=== PATIENT | female | born 1950 | race African-American/Black ===

== ENCOUNTER 2019-02-15 21:35 | Emergency (ER) | payer MEDICARE ==
[~2019-02-15] VITALS: Ht 172.7 cm; Wt 72.1 kg
[2019-02-15 21:33] VITALS: BP 159/98
[~2019-02-15 21:35] MED LIST: AMLODIPINE BES2.5 MG ORAL; ASPIR 8181 MG ORAL; LISINOPRIL5 MG ORAL
[2019-02-15] MEDS ORDERED: HALOPERIDOL0.5 MG ORAL (21:44)
[2019-02-15 22:25] LABS: APPEARANCE,URINE CLOUDY; BILIRUBIN, URINE NEGATIVE (NEGATIVE); COLOR,URINE PALE YELLOW; GLUCOSE, URINE (UA) NEGATIVE (NEGATIVE); KETONES,URINE NEGATIVE (NEGATIVE); LEUKOCYTE ESTERASE ,URINE 3+ (NEGATIVE); NITRITE,URINE NEGATIVE (NEGATIVE); PH,URINE 5 (4.5-8.0); PROTEIN,URINE 2+ (NEGATIVE); UROBILINOGEN,URINE NORMAL MG/DL (0.0-1.0)
[2019-02-15 22:25] LABS: BASOPHILS % (AUTO) 1.6 % (0.0-2.0); EOSINOPHILS % (AUTO) 3.1 % (0.0-3.0); HEMATOCRIT 35.4 % (37.0-47.0); HEMOGLOBIN 12.7 G/DL (12.0-16.0); LYMPHOCYTES % (AUTO) 28.7 % (20.0-45.0); MEAN CORPUSCULAR VOLUME 88 FL (80-99); MONOCYTES % (AUTO) 11.5 % (1.0-10.0); NEUTROPHILS % (AUTO) 55.2 % (45.0-75.0); PLATELET COUNT 168 K/UL (150-450); RED BLOOD COUNT 4.03 M/UL (4.20-5.40); RED CELL DISTRIBUTION WIDTH 11.3 % (11.6-14.8)
[2019-02-15 22:27] LABS: ANION GAP 10 mmol/L (5-15); BLOOD UREA NITROGEN 39 mg/dL (7-18); CALCIUM 9.1 MG/DL (8.5-10.1); CARBON DIOXIDE 25 MMOL/L (21-32); CHLORIDE 105 MMOL/L (98-107); CREATININE 2.1 MG/DL (0.55-1.30); POTASSIUM 3.8 MMOL/L (3.5-5.1); SODIUM 140 MMOL/L (136-145)
[2019-02-15] MEDS ORDERED: Azithromycin 250mg tab ORAL ONE (22:30)
--- NOTE | 2019-02-15 22:43 | Emergency Room Report ---
History of Present Illness General Chief Complaint: Nosebleed Source: Patient Present Illness HPI This is a 68-year-old female with a history of high blood pressure. She comes in with 2 complaints. Her first complaint is nosebleed. Acute onset for about an hour or 2 ago. She said his blood just pour out her nose. Mostly in the left side. No trauma. No fever chills but no nausea no vomiting. No recent cold. Better with pressure. Second complaint is vaginal discharge. She noticed a thick greenish discharge for the last 2 days. No dysuria. No frequency. She is sexually active with one partner. No protection. No history of STD. Allergies: Coded Allergies: No Known Allergies (Unverified , 02/15/19) Patient History Past Medical History: see triage record, old chart reviewed, HTN Past Surgical History: none Pertinent Family History: none Social History: Denies: smoking Last Menstrual Period: NA Now: No Immunizations: other Reviewed Nursing Documentation: PMH: Agreed; PSxH: Agreed Nursing Documentation-PMH Past Medical History: No History, Except For Hx Cardiac Problems: No Hx Hypertension: Yes Hx Pacemaker: No Hx Asthma: No Hx COPD: No Hx Diabetes: No Hx Cancer: No Hx Gastrointestinal Problems: No Hx Dialysis: No History Of Psychiatric Problem: No Hx Neurological Problems: No Hx Cerebrovascular Accident: No Hx Seizures: No Review of Systems Eye: Denies: eye pain, blurred vision ENT: Denies: ear pain, nose congestion, throat swelling Respiratory: Denies: cough, shortness of breath Cardiovascular: Denies: chest pain, palpitations Gastrointestinal: Denies: abdominal pain, diarrhea, nausea, vomiting Genitourinary: Reports: vag bleed/dc Musculoskeletal: Denies: back pain, joint pain Skin: Denies: rash Neurological: Denies: headache, numbness Endocrine: Denies: increased thirst, increased urine Hematologic/Lymphatic: Denies: easy bruising All Other Systems: negative except mentioned in HPI Physical Exam Vital Signs Date Time Temp Pulse Resp B/P (MAP) Pulse Ox O2 Delivery O2 Flow Rate FiO2 02/15/19 21:21 98.1 97 02/15/19 21:21 18 180/117 (138) 94 Room Air Vitals with high blood pressure Sp02 EP Interpretation: reviewed, normal General Appearance: well appearing, no apparent distress, alert Head: normocephalic, atraumatic Eyes: bilateral eye PERRL, bilateral eye EOMI ENT: hearing grossly normal, normal pharynx, other - Large clots in the left nose. Active oozing. Bleeding appear to be superiorly. Neck: full range of motion, supple, no meningismus Respiratory: chest non-tender, lungs clear, normal breath sounds Cardiovascular #1: regular rate, rhythm, no murmur Gastrointestinal: normal bowel sounds, non tender, no mass, no organomegaly, no bruit, non-distended Genitourinary: other - Pelvic exam done with female nurse as rn review. External exam normal. Internal exam showed copious amount of yellowish/ greenish discharge. Musculoskeletal: back normal, normal range of motion, gait/station normal Psychiatric: mood/affect normal Procedures Additional Procedure Procedure Narrative Procedure: Epistaxis control Indication: Epistaxis Description: Initially I placed a 5.5 cm Rhino Rocket. Stop the bleeding but 20 minutes later start bleeding again. I remove the packing and there was some clots on top of the Rhino Rocket. She also blew out a large clot. I suspect that the Rhino Rocket is not tamponading the bleeding site which is superior to it. Because of this I placed a gauze soaked in tranexamic acid. I was able to pack the nares tightly and superiorly also. This stopped the bleeding. Patient tolerated suture without any problem. No complication. Medical Decision Making Diagnostic Impression: Primary Impression: Epistaxis Additional Impressions: Hypertension Qualified Codes: I10 - Essential (primary) hypertension Acute cervicitis CKD (chronic kidney disease) Qualified Codes: N18.3 - Chronic kidney disease, stage 3 (moderate) ER Course Patient presents with epistaxis. Most likely secondary to high blood pressure. Blood pressure controlled. Leading controlled. She does have a cervicitis. This is most likely gonorrhea. She does have few Trichomonas in the urine. She received Rocephin, azithromycin and Flagyl. Recommend outpatient testing for HIV, hepatitis, syphilis and other STDs. Told her to keep her appointment with your doctor on Tuesday. Return if worse. Last Vital Signs Date Time Temp Pulse Resp B/P (MAP) Pulse Ox O2 Delivery O2 Flow Rate FiO2 02/15/19 21:33 98.1 89 18 159/98 94 Room Air Status: improved Disposition: HOME, SELF-CARE Condition: Stable Referrals: [facility] (PCP) Patient Instructions: Nosebleed, [id number] Additional Instructions: Increase your amlodipine to 10 mg a day. Keep your appointment with your doctor on Tuesday. Have your partner treated also. Recommend outpatient testing for HIV, hepatitis, syphilis and other STDs. Recommend Pap smear. Return if symptoms worsen. Tristen Florentino MD Feb 15, 2019 22:43
[2019-02-15 23:09] VITALS: BP 160/102
[2019-02-15] MEDS ORDERED: metroNIDAZOLE 500mg tab ORAL ONE (23:15)
[2019-02-15 23:19] VITALS: BP 152/99
[2019-02-15 23:39] VITALS: BP 154/87
[2019-02-16] MEDS ORDERED: AMLODIPINE BESY10 MG ORAL (07:44)
[2019-02-16] MEDS ORDERED: LISINOPRIL20 MG ORAL (07:44)
[2019-02-16] MEDS ORDERED: METOPROLOL TART25 MG ORAL (07:44)
[2019-02-16] MEDS ORDERED: ALLOPURINOL100 M1 ORAL (07:44)
[2019-02-16] MEDS ORDERED: ADVIL100 MG ORAL (07:44)
[2019-02-16] MEDS ORDERED: AMLODIPINE BESYL5 MG ORAL (07:45)
== END 2019-02-15 23:39 | disposition home or self-care (01) ==
LOC: EDBD 21:35 → EMR 22:01
DX: R04.0 Epistaxis (principal); I10 Essential (primary) hypertension; N72 Inflammatory disease of cervix uteri; N18.3 Chronic kidney disease, stage 3 (moderate)
CPT/HCPCS: 30901; 36415; 80048; 81001; 85025; 85610; 87081; 87086; 87205; 87210; 96374; 96375; 99284; J0360; J0696; 71045; 80053; 84484; 85730; 86850; 86900; 86901; 93005; 99285

== ENCOUNTER 2019-02-16 06:37 | Emergency (ER) | payer MEDICARE ==
[~2019-02-16] VITALS: Ht 172.7 cm; Wt 72.1 kg
[~2019-02-16 06:37] MED LIST changes: +HALOPERIDOL0.5 MG ORAL
[2019-02-16 06:45] VITALS: BP 155/95
--- NOTE | 2019-02-16 06:45 | NUR ---
ED Nurse Note: Pt aaox4, vss, no acute distress. Pt is cooperative and well groomed. PT BROUGHT IN BY [facility] 894 FOR NOSE BLEED X 30 MIN AGO. PT WAS HER EARLIER TODAY FOR THE SAME REASON.
--- NOTE | 2019-02-16 06:55 | NUR ---
ED Nurse Note: MD inserted Rapid Rhino Nasal Dressing in her left nostril. Pt tolerated tx.
--- NOTE | 2019-02-16 07:30 | NUR ---
Note melone in EDM - 02/16/19 at 0822 by CECILIA ED Nurse Note: Patient resting in bed in high barajas position. Patient awake, alert, oriented x 4. Regular, unlabored breathing noted. Nasal packing to left nare noted. Small amount < 3ml of nasal dripping noted with blood vir right nare. Patient c/o postnasal drip. Reports no N/V or diaphoresis. Report no dizziness or drowsiness. Provided comfort measures.
--- NOTE | 2019-02-16 07:30 | NUR ---
ED Nurse Note: Patient resting in bed in high barajas position. Patient awake, alert, oriented x 4. Regular, unlabored breathing noted. Nasal packing to left nare noted. Small amount < 3ml of nasal dripping noted with blood via right nare. Patient c/o postnasal drip. Reports no N/V or diaphoresis. Report no dizziness or drowsiness. Provided comfort measures.
--- NOTE | 2019-02-16 07:35 | NUR ---
ED Nurse Note: Patient started c/o aching pain to left chest, non-radiating, 06/28. Reports no N/V or dyspnea. ERMD notified and here at bedside. Family members at beside. 12 lead EKG obtained.
[2019-02-16 07:40] VITALS: BP 146/99
[2019-02-16] MEDS ORDERED: ADVIL100 MG ORAL (07:44)
[2019-02-16] MEDS ORDERED: METOPROLOL TART25 MG ORAL (07:44)
[2019-02-16] MEDS ORDERED: AMLODIPINE BESY10 MG ORAL (07:44)
[2019-02-16] MEDS ORDERED: ALLOPURINOL100 M1 ORAL (07:44)
[2019-02-16] MEDS ORDERED: LISINOPRIL20 MG ORAL (07:44)
[2019-02-16] MEDS ORDERED: AMLODIPINE BESYL5 MG ORAL (07:45)
--- NOTE | 2019-02-16 07:45 | NUR ---
ED Nurse Note: No nosebleed from right nare noted.
--- NOTE | 2019-02-16 08:01 | NUR ---
ED Nurse Note: Patient asked if she can take her morning meds. RN notified MD that she takes Lisinopril 40mg, metoprolol Tartrate 25mg, allopurinol 100mg and amlodipine 5mg. ERMD ordered to hold other meds at this time and ok to administer amlodipine. Will carry out the order.
[2019-02-16 08:04] LABS: BASOPHILS % (AUTO) 0.7 % (0.0-2.0); EOSINOPHILS % (AUTO) 0.5 % (0.0-3.0); HEMATOCRIT 35.9 % (37.0-47.0); HEMOGLOBIN 12.2 G/DL (12.0-16.0); LYMPHOCYTES % (AUTO) 15.9 % (20.0-45.0); MEAN CORPUSCULAR VOLUME 91 FL (80-99); MONOCYTES % (AUTO) 7.2 % (1.0-10.0); NEUTROPHILS % (AUTO) 75.6 % (45.0-75.0); PLATELET COUNT 164 K/UL (150-450); RED BLOOD COUNT 3.95 M/UL (4.20-5.40); RED CELL DISTRIBUTION WIDTH 12.7 % (11.6-14.8); WHITE BLOOD COUNT 5.6 K/UL (4.8-10.8)
[2019-02-16 08:16] LABS: ANION GAP 11 mmol/L (5-15); BLOOD UREA NITROGEN 37 mg/dL (7-18); CALCIUM 9.2 MG/DL (8.5-10.1); CARBON DIOXIDE 24 MMOL/L (21-32); CHLORIDE 107 MMOL/L (98-107); CREATININE 1.8 MG/DL (0.55-1.30); POTASSIUM 4.2 MMOL/L (3.5-5.1); SODIUM 141 MMOL/L (136-145)
[2019-02-16 08:20] LABS: ALANINE AMINOTRANSFERASE 16 U/L (12-78); ALBUMIN 3.3 G/DL (3.4-5.0); ALBUMIN/GLOBULIN RATIO 0.8 (1.0-2.7); ALKALINE PHOSPHATASE 71 U/L (46-116); ASPARTATE AMINO TRANSFERASE 13 U/L (15-37); BILIRUBIN,TOTAL 0.5 MG/DL (0.2-1.0)
--- NOTE | 2019-02-16 08:23 | Emergency Room Report ---
History of Present Illness General Chief Complaint: Nosebleed Source: Patient Present Illness HPI 68-year-old female presents ED for evaluation. Brought in by EMS from home. Complaining of epistaxis. States that she was seen here last night for epistaxis. Was packed and subsequently discharged. States she started bleeding just prior to arrival and it pushed the packing out. Denies any pain. Denies any prior history of epistaxis. Takes baby aspirin. Does not take any any blood thinners. No other aggravating or relieving factors. Denies any other associated symptoms Allergies: Coded Allergies: No Known Allergies (Unverified , 02/15/19) Patient History Past Medical History: HTN Past Surgical History: none Pertinent Family History: none Social History: Denies: smoking, alcohol use, drug use Last Menstrual Period: NA Now: No Immunizations: UTD Reviewed Nursing Documentation: PMH: Agreed; PSxH: Agreed Nursing Documentation-PMH Past Medical History: No History, Except For Hx Cardiac Problems: No Hx Hypertension: Yes Hx Pacemaker: No Hx Asthma: No Hx COPD: No Hx Diabetes: No Hx Cancer: No Hx Gastrointestinal Problems: No Hx Dialysis: No Hx Neurological Problems: No Hx Cerebrovascular Accident: No Hx Seizures: No Review of Systems All Other Systems: negative except mentioned in HPI Physical Exam Vital Signs Date Time Temp Pulse Resp B/P (MAP) Pulse Ox O2 Delivery O2 Flow Rate FiO2 02/16/19 06:33 98.1 104 19 153/98 (116) 98 Room Air Sp02 EP Interpretation: reviewed, normal General Appearance: no apparent distress, alert, GCS 15, non-toxic Head: normocephalic, atraumatic Eyes: bilateral eye normal inspection, bilateral eye PERRL ENT: hearing grossly normal, normal pharynx, no angioedema, normal voice, other - bleeding from L nares Neck: full range of motion, supple/symm/no masses Respiratory: chest non-tender, lungs clear, normal breath sounds, speaking full sentences Cardiovascular #1: regular rate, rhythm, no edema Cardiovascular #2: 2+ carotid (R), 2+ carotid (L), 2+ radial (R), 2+ radial (L) , 2+ dorsalis pedis (R), 2+ dorsalis pedis (L) Gastrointestinal: normal bowel sounds, non tender, soft, non-distended, no guarding, no rebound Rectal: deferred Genitourinary: normal inspection, no CVA tenderness Musculoskeletal: back normal, normal range of motion, gait/station normal, non- tender Neurologic: alert, motor strength/tone normal, oriented x3, sensory intact, responsive, speech normal Psychiatric: judgement/insight normal, memory normal, mood/affect normal, no suicidal/homicidal ideation Reflexes: 3+ bicep (R), 3+ bicep (L), 3+ tricep (R), 3+ tricep (L), 3+ knee (R) , 3+ knee (L) Lymphatic: no adenopathy Medical Decision Making Diagnostic Impression: Primary Impression: Epistaxis Additional Impressions: ACS (acute coronary syndrome) Renal insufficiency ER Course 68-year-old female presents to ED with epistaxis from L nostril. No trauma. Differential-anterior epistaxis, posterior epistaxis, coagulopathy Patient placed on stretcher. After initial history, physical exam reveals feelderly male in no acute distress. Patient is actively bleeding from the L nostril. I am unable to identify whether the bleeding his anterior versus posterior as the bleeding is profuse. Patient is protecting her airway. Initially 5.5 cm Rhino Rocket placed. There is overall epistaxis achieved with some oozing noted. Patient was seen here last night for similar epistaxis. Initially Rhino Rocket was placed but patient has significant bleeding. Afterwards ER physician soaked TXA and gauze and placed that in the nostril. Given that patient is still bleeding with her age and comorbidities I do not believe it is safe to discharge at this time. Patient also started developing chest pain in the ED. Nitro improved chest pain. Labs-no leukocytosis, hemoglobin/hematocrit stable, BUN/Cr elevated, coags ok, trop negative EKG - NSR no acute ischemic changes interpreted by me CXR no acute process ENT unavailable. Because of insurance patient will be transferred Diagnoses- epistaxis, ACS, renal insufficiency transferred in [facility] [place] Labs Test 02/16/19 07:59 White Blood Count 5.6 K/UL (4.8-10.8) Red Blood Count 3.95 M/UL (4.20-5.40) Hemoglobin 12.2 G/DL (12.0-16.0) Hematocrit 35.9 % (37.0-47.0) Mean Corpuscular Volume 91 FL (80-99) Mean Corpuscular Hemoglobin 30.8 PG (27.0-31.0) Mean Corpuscular Hemoglobin Concent 33.9 G/DL (32.0-36.0) Red Cell Distribution Width 12.7 % (11.6-14.8) Platelet Count 164 K/UL (150-450) Mean Platelet Volume 6.7 FL (6.5-10.1) Neutrophils (%) (Auto) 75.6 % (45.0-75.0) Lymphocytes (%) (Auto) 15.9 % (20.0-45.0) Monocytes (%) (Auto) 7.2 % (1.0-10.0) Eosinophils (%) (Auto) 0.5 % (0.0-3.0) Basophils (%) (Auto) 0.7 % (0.0-2.0) Prothrombin Time 10.8 SEC (9.30-11.50) Prothromb Time International Ratio 1.0 (0.9-1.1) Activated Partial Thromboplast Time 28 SEC (23-33) Sodium Level 141 MMOL/L (136-145) Potassium Level 4.2 MMOL/L (3.5-5.1) Chloride Level 107 MMOL/L (98-107) Carbon Dioxide Level 24 MMOL/L (21-32) Anion Gap 11 mmol/L (5-15) Blood Urea Nitrogen 37 mg/dL (7-18) Creatinine 1.8 MG/DL (0.55-1.30) Estimat Glomerular Filtration Rate 33.7 mL/min (>60) Glucose Level 121 MG/DL (74-106) Calcium Level 9.2 MG/DL (8.5-10.1) Total Bilirubin 0.5 MG/DL (0.2-1.0) Aspartate Amino Transf (AST/SGOT) 13 U/L (15-37) Alanine Aminotransferase (ALT/SGPT) 16 U/L (12-78) Alkaline Phosphatase 71 U/L (46-116) Troponin I 0.000 ng/mL (0.000-0.056) Total Protein 7.6 G/DL (6.4-8.2) Albumin 3.3 G/DL (3.4-5.0) Globulin 4.3 g/dL Albumin/Globulin Ratio 0.8 (1.0-2.7) EKG Diagnostic Results Rate: normal Rhythm: NSR ST Segments: no acute changes ASA given to the pt in ED: No - patient having epistaxis Rhythm Strip Diag. Results EP Interpretation: yes Rhythm: NSR, no PVC's, no ectopy Chest X-Ray Diagnostic Results Chest X-Ray Diagnostic Results : Chest X-Ray Ordered: Yes # of Views/Limited/Complete: 1 View Indication: Chest Pain EP Interpretation: Yes Interpretation: no consolidation, no effusion, no pneumothorax, no acute cardiopulmonary disease Impression: No acute disease Electronically Signed by: Electronically signed by Remington De Luna MD Last Vital Signs Date Time Temp Pulse Resp B/P (MAP) Pulse Ox O2 Delivery O2 Flow Rate FiO2 02/16/19 08:07 91 154/104 02/16/19 07:40 16 Room Air 02/16/19 07:40 96 02/16/19 06:45 98.1 Status: improved Disposition: XFER T-[facility] Condition: Serious Referrals: [facility]ERR[facility] (PCP) Remington De Luna MD Feb 16, 2019 08:23
[2019-02-16] MEDS ORDERED: Nitroglycerin Subl 0.4mg tab SL PRN (08:30)
--- NOTE | 2019-02-16 08:35 | NUR ---
ED Nurse Note: Patient c/o headache, left frontal area. Reports no N/V or dizziness. ERMD notified.
--- NOTE | 2019-02-16 08:45 | NUR ---
ED Nurse Note: Patient reports decreased chest pain and patient states 'I will wait, better now' and she does not want to take any additional NTG tab at this time. Explained the benefit of the meds, but patient wants to wait before another NTG tab. No N/V or dyspnea noted.
[2019-02-16 08:50] VITALS: BP 123/87
--- NOTE | 2019-02-16 09:23 | NUR ---
Note jim in EDM - 02/16/19 at 0925 by BRIA ED Nurse Note: Report given to Temi at [facility].
[2019-02-16 09:24] VITALS: BP 136/87
[2019-02-16 09:26] VITALS: BP 136/87
--- NOTE | 2019-02-16 09:26 | NUR ---
ED Nurse Note: Report given to FAISAL Membreno at [facility].
--- NOTE | 2019-02-16 09:27 | NUR ---
ED Nurse Note: Patient resting in bed, using cell phone. No facial grimacing or guarding noted.
--- NOTE | 2019-02-16 09:49 | NUR ---
ED Nurse Note: Report given to bill Becerril Royalty. Patient reports no CP at this time.
[2019-02-16 09:55] VITALS: BP 127/85
--- NOTE | 2019-02-16 10:04 | Diagnostic Imaging Report ---
Indication: Chest pain Comparison: None A single view chest radiograph was obtained. Findings: Cardiomediastinal appearance is within normal limits for age. Aorta is ectatic. The lungs are clear. Pulmonary vascularity is appropriate. The diaphragmatic contour is smooth and costophrenic angles are sharp. No pleural effusions are identified. The bones are unremarkable. Impression: No acute findings
== END 2019-02-16 09:55 | disposition short-term general hospital (02) ==
LOC: EDBD 06:37 → EMR 07:08 → EDBEDREQ 08:03 → EMR 09:55
DX: R04.0 Epistaxis (principal); I24.9 Acute ischemic heart disease, unspecified; N28.9 Disorder of kidney and ureter, unspecified; I10 Essential (primary) hypertension
CPT/HCPCS: 36415; 71045; 80053; 84484; 85025; 85610; 85730; 86850; 86900; 86901; 93005; 99285

== ENCOUNTER 2019-03-09 04:09 | Emergency (ER) | payer MEDICARE ==
[~2019-03-09] VITALS: Ht 172.7 cm; Wt 72.1 kg
[~2019-03-09 04:09] MED LIST changes: +ADVIL100 MG ORAL; +ALLOPURINOL100 M1 ORAL; +AMLODIPINE BESY10 MG ORAL; +AMLODIPINE BESYL5 MG ORAL; +LISINOPRIL20 MG ORAL; +METOPROLOL TART25 MG ORAL
[2019-03-09 04:19] VITALS: BP 147/109
--- NOTE | 2019-03-09 04:47 | Emergency Room Report ---
History of Present Illness General Chief Complaint: Nosebleed Source: Patient, Medical Record Present Illness HPI This is a 68-year-old female with history of high blood pressure. She presents with chief complaint of nosebleed.. I woke her up tonight. Bleeding was profuse. On the left side. This is similar symptom when she presents last month when I saw her. Initially bleeding stopped but came back and she had to be transferred. She says she was admitted for 4 days. 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 Measure 4.5 cm. Bleeding stopped when she was transferred. No trauma. No nausea no vomiting. Worse with laying flat. Better with sitting up. Denies any other complaint. Allergies: Coded Allergies: No Known Allergies (Unverified , 02/15/19) Patient History Past Medical History: see triage record, old chart reviewed, HTN Past Surgical History: other Pertinent Family History: none Social History: Denies: smoking Now: No Immunizations: other Reviewed Nursing Documentation: PMH: Agreed; PSxH: Agreed Nursing Documentation-PMH Past Medical History: No History, Except For Hx Cardiac Problems: No Hx Hypertension: Yes Hx Pacemaker: No Hx Asthma: No Hx COPD: No Hx Diabetes: No Hx Cancer: No Hx Gastrointestinal Problems: No Hx Dialysis: No Hx Neurological Problems: No Hx Cerebrovascular Accident: No Hx Seizures: No Review of Systems Eye: Denies: eye pain, blurred vision ENT: Denies: ear pain, nose congestion, throat swelling Respiratory: Denies: cough, shortness of breath Cardiovascular: Denies: chest pain, palpitations Gastrointestinal: Denies: abdominal pain, diarrhea, nausea, vomiting Musculoskeletal: Denies: back pain, joint pain Skin: Denies: rash Neurological: Denies: headache, numbness Endocrine: Denies: increased thirst, increased urine Hematologic/Lymphatic: Denies: easy bruising All Other Systems: negative except mentioned in HPI Physical Exam Vital Signs Date Time Temp Pulse Resp B/P (MAP) Pulse Ox O2 Delivery O2 Flow Rate FiO2 03/09/19 04:07 98.8 114 19 190/120 (143) 100 Room Air Vitals with high blood pressure Sp02 EP Interpretation: reviewed, normal General Appearance: well appearing, no apparent distress, alert Head: normocephalic, atraumatic Eyes: bilateral eye PERRL, bilateral eye EOMI ENT: hearing grossly normal, normal pharynx, other - Left nose with brisk bleeding. There was a large clots. There is bleeding seen in the oropharynx. Neck: full range of motion, supple, no meningismus Respiratory: chest non-tender, lungs clear, normal breath sounds Cardiovascular #1: regular rate, rhythm, no murmur Gastrointestinal: normal bowel sounds, non tender, no mass, no organomegaly, no bruit, non-distended Musculoskeletal: back normal, normal range of motion, gait/station normal Psychiatric: mood/affect normal Procedures Additional Procedure Procedure Narrative Procedure: Epistaxis control Indication: Epistaxis Description: I had patient blow her nose and there is large amount of clots. There was brisk bleeding from the left nares. Initially I placed a 7.5 cm Rhino Rocket. She still has bleeding around it. Remove this and tried with a Merocel Miles nasal dressing airway. After insertion, I injected tranexamic acid (TXA) to expand the Merocel. This appeared to stop the bleeding. Patient tolerated procedure without any problem. Medical Decision Making Diagnostic Impression: Primary Impression: Severe epistaxis Additional Impression: Hypertension Qualified Codes: I10 - Essential (primary) hypertension ER Course This patient presents with severe epistaxis. He is better but she still has slight wheezing. Have a small arterial bleed. May also have posterior bleeding. Similar symptom less than 3 weeks ago. Because of her age and amount of bleeding, will transfer for further work-up and possible ENT consult. I discussed case with Dr. Almanza who accepted pt for transfer to [facility]. Rhythm Strip Diag. Results EP Interpretation: yes Rate: 62 Rhythm: NSR, no PVC's, no ectopy Last Vital Signs Date Time Temp Pulse Resp B/P (MAP) Pulse Ox O2 Delivery O2 Flow Rate FiO2 03/09/19 04:19 98.8 106 20 147/109 100 Room Air Status: improved Disposition: ER T-[facility] Condition: Stable Tristen Florentino MD Mar 09, 2019 04:47
[2019-03-09 05:00] VITALS: BP 138/100
[2019-03-09] MEDS ORDERED: Morphine Sulfate 4mg/ml Inj (IV USE ONLY) IVP ONE (05:15)
[2019-03-09 05:24] LABS: BASOPHILS % (AUTO) 1.2 % (0.0-2.0); HEMATOCRIT 37.2 % (37.0-47.0); HEMOGLOBIN 12.1 G/DL (12.0-16.0); LYMPHOCYTES % (AUTO) 34.6 % (20.0-45.0); MEAN CORPUSCULAR VOLUME 93 FL (80-99); MONOCYTES % (AUTO) 7.6 % (1.0-10.0); NEUTROPHILS % (AUTO) 52.6 % (45.0-75.0); PLATELET COUNT 179 K/UL (150-450); RED BLOOD COUNT 3.98 M/UL (4.20-5.40); RED CELL DISTRIBUTION WIDTH 13.4 % (11.6-14.8); WHITE BLOOD COUNT 5.4 K/UL (4.8-10.8)
[2019-03-09 05:43] LABS: ANION GAP 7 mmol/L (5-15); BLOOD UREA NITROGEN 27 mg/dL (7-18); CALCIUM 9.3 MG/DL (8.5-10.1); CARBON DIOXIDE 27 MMOL/L (21-32); CHLORIDE 106 MMOL/L (98-107); CREATININE 1.6 MG/DL (0.55-1.30); POTASSIUM 3.8 MMOL/L (3.5-5.1); SODIUM 140 MMOL/L (136-145)
[2019-03-09 05:46] VITALS: BP 84/64
[2019-03-09 07:27] VITALS: BP 130/79
[2019-03-09] MEDS ORDERED: Acetaminophen 500mg (ES) tab ORAL ONE (08:30)
[2019-03-09 09:12] VITALS: BP 127/89
== END 2019-03-09 09:12 | disposition short-term general hospital (02) ==
LOC: EDBD 04:09 → EMR 04:49
DX: R04.0 Epistaxis (principal); I10 Essential (primary) hypertension
CPT/HCPCS: 30903; 36415; 80048; 85025; 85610; 85730; 87081; 96361; 96374; 96375; 99285; J2270; J2405

== ENCOUNTER 2019-03-15 20:14 | Emergency (ER) | payer MEDICARE ==
[~2019-03-15] VITALS: Ht 172.7 cm; Wt 72.1 kg
[2019-03-15 20:16] VITALS: BP 146/94
--- NOTE | 2019-03-15 20:16 | NUR ---
ED Nurse Note: Patient brought in by ambulance with complaints of continued nasal bleeding, nose ckipm provided during triage.
--- NOTE | 2019-03-15 20:58 | Emergency Room Report ---
History of Present Illness General Chief Complaint: Nosebleed Source: Patient, Medical Record Present Illness HPI 68-year-old female history of epistaxis presents with nosebleed 1 hour prior to arrival, patient denies any lightheadedness, pressure which improved the nosebleed, no aggravating relieving factors patient is not on blood thinners severity was mild, symptoms resolved prior to arriving in the ED Allergies: Coded Allergies: No Known Allergies (Unverified , 02/15/19) Patient History Past Medical History: see triage record Reviewed Nursing Documentation: PMH: Agreed; PSxH: Agreed Nursing Documentation-PMH Past Medical History: No History, Except For Hx Cardiac Problems: No Hx Hypertension: Yes Hx Pacemaker: No Hx Asthma: No Hx COPD: No Hx Diabetes: No Hx Cancer: No Hx Gastrointestinal Problems: No Hx Dialysis: No Hx Neurological Problems: No Hx Cerebrovascular Accident: No Hx Seizures: No Review of Systems All Other Systems: negative except mentioned in HPI Physical Exam Vital Signs Date Time Temp Pulse Resp B/P (MAP) Pulse Ox O2 Delivery O2 Flow Rate FiO2 03/15/19 20:16 97.9 84 19 146/94 (111) 100 Room Air Sp02 EP Interpretation: reviewed, normal General Appearance: well appearing, no apparent distress, alert Head: normocephalic, atraumatic Eyes: bilateral eye PERRL, bilateral eye EOMI ENT: uvula midline, moist mucus membranes, other - Naris: Dried blood bilaterally, no obvious bleed, hemorrhage well controlled Neck: supple, thyroid normal, supple/symm/no masses Respiratory: lungs clear, no respiratory distress, no retraction, no accessory muscle use Cardiovascular #1: normal peripheral pulses, regular rate, rhythm, no edema, no gallop, no murmur Gastrointestinal: non tender, soft, no guarding, no rebound Musculoskeletal: normal inspection Neurologic: alert, oriented x3 Psychiatric: mood/affect normal Skin: no rash, warm/dry Medical Decision Making Diagnostic Impression: Primary Impression: Epistaxis ER Course 68-year-old female presents with resolved epistaxis Disposition home with return precautions Last Vital Signs Date Time Temp Pulse Resp B/P (MAP) Pulse Ox O2 Delivery O2 Flow Rate FiO2 03/15/19 20:16 97.9 84 19 146/94 (111) 100 Room Air Disposition: HOME, SELF-CARE Condition: Stable Referrals: [facility] Mccullough. [facility] Patient Instructions: Nosebleed, [id number] Additional Instructions: The patient was provided with discharge instructions, notified to follow-up with a primary care doctor and or specialist in the next 24-48 hours, and to return to the ED if they have worsening of their symptoms. Please note that this report is being documented using DRAGON technology. This can lead to erroneous entry secondary to incorrect interpretation by the dictating instrument. Gigi Alfaro MD Mar 15, 2019 20:58
[2019-03-15 21:16] VITALS: BP 146/94
--- NOTE | 2019-03-15 21:16 | NUR ---
ED Nurse Note: Patient cleared for discharge by Er provider, nasal bleeding has stopped. Patient verbaslized understanding of discharge instructions. ID band removed. Patient departed with all belongings accompanied by her friend.
== END 2019-03-15 21:16 | disposition home or self-care (01) ==
LOC: EDBD 20:14 → EMR 21:16
DX: R04.0 Epistaxis (principal); I10 Essential (primary) hypertension
CPT/HCPCS: 99281